=== PATIENT | male | born 1965 | race Caucasian/White ===

== ENCOUNTER → 2020-06-18 | Outpatient (CLI) | payer OTHER ==
--- NOTE | 2020-06-18 17:04 | REPVR ---
PROCEDURE INFORMATION: Exam: MR Lumbar Spine Without Contrast. Exam date and time: 06/18/2020 4:34 PM Age: 54 years old Clinical indication: Low back pain; Additional info: Lumbar radiculopathy TECHNIQUE: Imaging protocol: Multiplanar magnetic resonance images of the lumbar spine without intravenous contrast. COMPARISON: No relevant prior studies available. FINDINGS: Vertebrae: There is no fracture. Vertebral bodies maintain their height and alignment. There are degenerative signal changes within the endplates from L3-L4 1. Stir images demonstrate no evidence of a marrow infiltrating lesion. Spinal cord: On the most sagittal images there is a partly visible fluid intensity linear area within the lower thoracic. No axial images at this level. This extends superior to the area scanned. Maximal diameter the sagittal images is 2 mm. T12-L1: Mild disc bulge seen on sagittal images. No axial images at this level. There is facet hypertrophy. There is no central stenosis. L1-L2: No disc bulge. There is facet hypertrophy. There is no central or foraminal stenosis L2-L3: No disc bulge. There is facet hypertrophy. There is no central or foraminal stenosis L3-L4: Disc space narrowing. Mild disc bulge. Facet hypertrophy. No central or foraminal stenosis. L4-L5: Mild disc bulge. Facet hypertrophy. No central stenosis. Mild right foraminal stenosis. L5-S1: L5-S1: Disc space narrowing. Posterior osteophyte and disc bulge partially effacing the ventral epidural fat. There is facet arthropathy with moderate bilateral foraminal stenosis with effacement of fat inferior to the exiting L5 nerve roots. Other bones/joints: Soft tissues: No paraspinous or intraspinal mass, hemorrhage or fluid collection. IMPRESSION: 1. 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 Details above. 2. 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 Electronically signed by: Tod Maher On 06/18/2020 17:04:15 PM
== END ==
LOC: M RAD 15:45
PROVIDERS: ATTEND Nurse Practitioner Family
DX: M51.16 Intervertebral disc disorders with radiculopathy, lumbar region (principal); M48.061 Spinal stenosis, lumbar region without neurogenic claudication; G95.0 Syringomyelia and syringobulbia